=== PATIENT | female | born 1995 | race American Indian/Alaskan Native ===

== ENCOUNTER 2016-12-02 16:12 | Emergency (ER) | payer OTHER ==
[2016-12-02 16:27] VITALS: TEMP 98.1
[2016-12-02] MEDS ORDERED: Sodium Chloride 0.9% 1,000 ML IV STA (16:54)
[2016-12-02 17:46] LABS: ADD MANUAL DIFF? NO
[2016-12-02 17:55] LABS: BASO # 0.04 K/mm3 (0.0-2.0); BASO % 0.7 % (0.0-3.0); EOS # 0.1 (0.0-0.7); EOS % 0.8 % (1.5-5.0); GRAN # 2.85 (1.4-6.5); GRAN % 48.1 % (50.0-68.0); HEMATOCRIT 39.8 % (36.0-48.0); LYMPH # 2.1 (1.2-3.4); LYMPH % 34.9 % (22.0-35.0); MEAN CELL VOLUME 77.1 fL (80.0-105.0); MEAN CORPUSCULAR HEMOGLOBIN 25.6 pg (25.0-35.0); MEAN CORPUSCULAR HGB CONC 33.2 g/dl (31.0-37.0); MEAN PLATELET VOLUME 9.4 fl (7.0-11.0); MONO # 0.9 (0.1-0.6); MONO % 15.5 % (1.0-6.0); PLATELET COUNT 387 10^3/uL (120.0-450.0); RED CELL DISTRIBUTION WIDTH 15.2 % (11.5-14.5); WHITE BLOOD COUNT 5.9 10^3/ul (4.5-11.0)
[2016-12-02 17:56] LABS: URINE BILIRUBIN NEGATIVE (NEGATIVE); URINE BLOOD TRACE-INTACT (NEGATIVE); URINE GLUCOSE (UA) NEGATIVE (NEGATIVE); URINE KETONE NEGATIVE (NEGATIVE); URINE LEUKOCYTE ESTERASE NEGATIVE Leu/uL (NEGATIVE); URINE PROTEIN TRACE mg/dL (<30 mg/dL); URINE UROBILINOGEN 0.2 E.U./dL (<1 E.U./dL)
[2016-12-02 18:09] LABS: URINE APPEARANCE CLOUDY (CLEAR); URINE COLOR YELLOW (YELLOW)
[2016-12-02 18:09] LABS: ALB/GLOB RATIO 1.3 (1.1-1.8); ALKALINE PHOSPHATASE 78 U/L (38-133); ALT/SGPT 36 U/L (7-56); AST/SGOT 26 U/L (15-39); BILIRUBIN,TOTAL 0.5 mg/dL (0.2-1.3); BLOOD UREA NITROGEN 14 mg/dL (7-21); CALCIUM 9.7 mg/dL (8.4-10.5); CARBON DIOXIDE 25 mmol/L (21-33); CHLORIDE 104 mmol/L (98-107); GFR AFRICAN-AMERICAN > 60; GLUCOSE,RANDOM 90 mg/dL (70-110); POTASSIUM 3.7 mmol/L (3.6-5.0); SODIUM 141 mmol/L (132-148); TOTAL PROTEIN 8.1 g/dL (5.8-8.3)
[2016-12-02 18:17] LABS: URINE AMORPHOUS SEDIMENT MANY; URINE BACTERIA MOD (NEG)
--- NOTE | 2016-12-02 18:43 | ED PDOC ---
Arrival/HPI - General Chief Complaint: GI Problem Time Seen by Provider: 12/02/16 16:18 Historian: Patient - History of Present Illness Narrative History of Present Illness (Text): 12/02/16 18:46 Kristen Lam, a 21 year old female, presents to the emergency department complaining of suprapubic pain and 1 episode of small amount of hematochezia since . Patient also notes positive dysuria. Patient denies recent travels, hematuria, vaginal bleeding, vaginal discharge, nausea, vomiting, no changes in appetite or any other complaints at this time. Time/Duration: 24 hours Symptom Onset: Sudden Symptom Course: Unchanged Activities at Onset: Rest Modifying Factors (Text): none Context: Home Associated Symptoms (Text): dysuria Past Medical History - Provider Review Nursing Documentation Reviewed: Yes - Infectious Disease Hx of Infectious Diseases: None - Psychiatric Hx Substance Use: No - Anesthesia Hx Anesthesia: Yes Hx Anesthesia Reactions: No Hx Malignant Hyperthermia: No Family/Social History - Physician Review Nursing Documentation Reviewed: Yes Family/Social History: No Known Family HX Smoking Status: Light Smoker < 10 Cigarettes Daily Hx Alcohol Use: Yes Frequency of alcohol use: Socially Hx Substance Use: No Allergies/Home Meds Allergies/Adverse Reactions: Allergies No Known Allergies Allergy (Verified 12/02/16 16:27) Review of Systems - Physician Review All systems were reviewed & negative as marked: Yes - Review of Systems Gastrointestinal: Hematochezia. absent: Nausea, Vomiting, Appetite Changes Genitourinary Female: Dysuria. absent: Hematuria, Vaginal Bleeding, Vaginal Discharge Physical Exam Vital Signs Reviewed: Yes Vital Signs Temp Pulse Resp BP Pulse Ox 12/02/16 16:18 98.1 F 82 19 125/82 98 Temperature: Afebrile Blood Pressure: Normal Pulse: Regular Respiratory Rate: Normal Appearance: Positive for: Well-Appearing, Non-Toxic, Comfortable Pain Distress: None Mental Status: Positive for: Alert and Oriented X 3 - Systems Exam Head: Present: Atraumatic, Normocephalic Pupils: Present: PERRL Extroacular Muscles: Present: EOMI Conjunctiva: Present: Normal Mouth: Present: Moist Mucous Membranes Neck: Present: Normal Range of Motion Respiratory/Chest: Present: Clear to Auscultation, Good Air Exchange. No: Respiratory Distress, Accessory Muscle Use Cardiovascular: Present: Regular Rate and Rhythm, Normal S1, S2. No: Murmurs Abdomen: Present: Tenderness (mild suprapubic), Normal Bowel Sounds Upper Extremity: Present: Normal Inspection. No: Cyanosis, Edema Lower Extremity: Present: Normal Inspection. No: Edema Neurological: Present: GCS=15, CN II-XII Intact, Speech Normal Skin: Present: Warm, Dry, Normal Color. No: Rashes Psychiatric: Present: Alert, Oriented x 3, Normal Insight, Normal Concentration Medical Decision Making ED Course and Treatment: 12/02/16 18:44 Impression: A 21 year old female with suprapubic pain and 1 episode of small amount hematochezia. Differential Diagnosis include but are not limited to: Plan: -- Urinalysis -- labs -- IV fluids -- Reassess and disposition Progress Notes: - Lab Interpretations Lab Results: 12/02/16 17:37 12/02/16 17:37 Lab Results 12/02/16 17:38: Urine Color Yellow, Urine Appearance Cloudy, Urine pH 6.0, Ur Specific [place] >= 1.030, Urine Protein Trace H, Urine Glucose (UA) Negative, Urine Ketones Negative, Urine Blood Trace-intact H, Urine Nitrate Negative, Urine Bilirubin Negative, Urine Urobilinogen 0.2, Ur Leukocyte Esterase Negative , Urine RBC 1 - 3, Urine WBC 2 - 5, Ur Epithelial Cells 6 - 8, Amorphous Sediment Many, Urine Bacteria Mod, Fine Granular Casts 0 - 2 12/02/16 17:37: Urine HCG, Qual Negative 12/02/16 17:37: Sodium 141, Potassium 3.7, Chloride 104, Carbon Dioxide 25, Anion Gap 16, BUN 14, Creatinine 0.7, Est GFR ( Amer) > 60, Est GFR (Non- Af Amer) > 60, Random Glucose 90, Calcium 9.7, Total Bilirubin 0.5, AST 26, ALT 36, Alkaline Phosphatase 78, Total Protein 8.1, Albumin 4.5, Globulin 3.6, Albumin/Globulin Ratio 1.3 12/02/16 17:37: WBC 5.9, RBC 5.16, Hgb 13.2, Hct 39.8, MCV 77.1 L, MCH 25.6, MCHC 33.2, RDW 15.2 H, Plt Count 387, MPV 9.4, Gran % 48.1 L, Lymph % (Auto) 34.9, [place] % (Auto) 15.5 H, Eos % (Auto) 0.8 L, Baso % (Auto) 0.7, Gran # 2.85, Lymph # 2.1, [place] # 0.9 H, Eos # 0.1, Baso # 0.04 I have reviewed the lab results: Yes - Medication Orders Current Medication Orders: Discontinued Medications Sodium Chloride (Sodium Chloride 0.9%) 1,000 mls @ 1,000 mls/hr IV .Q1H STA Stop: 12/02/16 17:53 Last Admin: 12/02/16 17:43 Dose: 1,000 mls/hr - Scribe Statement [place] All medical record entries made by the Scribe were at my direction and personally dictated by me. I have reviewed the chart and agree that the record accurately reflects my personal performance of the history, physical exam, medical decision making, and the department course for this patient. I have also personally directed, reviewed, and agree with the discharge instructions and disposition. Disposition/Present on Arrival - Present on Arrival Any Indicators Present on Arrival: No History of DVT/PE: No History of Uncontrolled Diabetes: No Urinary Catheter: No History of Decub. Ulcer: No History Surgical Site Infection Following: None - Disposition Have Diagnosis and Disposition been Completed?: Yes Diagnosis: Cystitis Disposition: HOME/ ROUTINE Disposition Time: 18:30 Patient Plan: Discharge Patient Problems: Current Active Problems Problem Status Onset Cystitis Acute Condition: GOOD Discharge Instructions (ExitCare): Urinary Tract Infection in Women (ED) Additional Instructions: Thank you for letting us take care of you today. Your provider was Dr. Cr. You were treated for bladder infection. The emergency medical care you received today was directed at your acute symptoms. If you were prescribed any medication, please fill it and take as directed. It may take several days for your symptoms to resolve. Return to the Emergency Department if your symptoms worsen, do not improve, or if you have any other problems. Please contact your doctor or call one of the physicians/clinics you have been referred to that are listed on the Patient Visit Information form that is included in your discharge packet. Bring any paperwork you were given at discharge with you along with any medications you are taking to your follow up visit. Our treatment cannot replace ongoing medical care by a primary care provider (PCP) outside of the emergency department. Thank you for allowing the [facility] team to be part of your care today. You had a urine culture: It will take several days for the results, if any change in treatment is needed we will contact you. Follow up with Dr. Clay in 3-4 days for re-evaluation. Prescriptions: Ibuprofen [Motrin] 600 mg PO Q6 PRN #20 tab PRN Reason: Pain, Moderate (4-7) Nitrofurantoin Macrocrystals [Macrobid] 100 mg PO BID #14 cap Referrals: Nito Clay MD [Primary Care Provider] - Follow up with primary
[2016-12-02 19:17] VITALS: BP 129/84; PULSE 60; RESP 16; O2SAT 100
== END 2016-12-02 19:22 | disposition home or self-care (01) ==
LOC: ED 16:12
DX: N30.90 Cystitis, unspecified without hematuria (principal)
CPT/HCPCS: 80053; 81001; 84703; 85025; 87086; 99284; J7040

== ENCOUNTER 2016-12-03 14:10 | Emergency (ER) | payer OTHER ==
[2016-12-03 14:39] VITALS: TEMP 98.7; O2SAT 98; BMI 30.1
--- NOTE | 2016-12-03 15:14 | ED PDOC ---
Arrival/HPI - General Historian: Patient - General Chief Complaint: Female Genitourinary Time Seen by Provider: 12/03/16 14:12 - History of Present Illness Narrative History of Present Illness (Text): 12/03/16 15:13 21-year-old female presents today with concerns for vaginal discharge and vaginal bumps. Patient states she was seen in the emergency room yesterday and was treated for urinary tract infection. Patient states she woke up this morning and had a lot of abnormal of vaginal discharge. Patient with a history of recent unprotected sex with new partner. She denies any rectal bleeding. Denies any vaginal bleeding. Denies abdominal pain. No nausea or vomiting. Patient states she was concerned and came to the emergency room for reevaluation. (Mariana Heard) Past Medical History - Provider Review Nursing Documentation Reviewed: Yes - Travel History Have you recently traveled outside [place] w/in the past 3 mons?: No - Infectious Disease Hx of Infectious Diseases: None - Psychiatric Hx Substance Use: No - Anesthesia Hx Anesthesia: Yes Hx Anesthesia Reactions: No Hx Malignant Hyperthermia: No Family/Social History - Physician Review Nursing Documentation Reviewed: Yes Family/Social History: Unknown Family HX Smoking Status: Light Smoker < 10 Cigarettes Daily Hx Alcohol Use: No Hx Substance Use: No Allergies/Home Meds Allergies/Adverse Reactions: Allergies No Known Allergies Allergy (Verified 12/03/16 14:38) Review of Systems - Review of Systems Constitutional: absent: Fatigue, Fevers Respiratory: absent: SOB, Cough Cardiovascular: absent: Chest Pain, Palpitations Gastrointestinal: absent: Abdominal Pain, Diarrhea, Nausea, Vomiting, Hematochezia Genitourinary Female: Dysuria, Vaginal Discharge. absent: Frequency, Hematuria , Vaginal Bleeding Musculoskeletal: absent: Arthralgias, Back Pain, Neck Pain Skin: absent: Rash, Pruritis Neurological: absent: Headache, Dizziness Psychiatric: absent: Depression Physical Exam Vital Signs Reviewed: Yes Temperature: Afebrile Blood Pressure: Normal Pulse: Regular Respiratory Rate: Normal Appearance: Positive for: Well-Appearing, Non-Toxic, Comfortable Pain Distress: None Mental Status: Positive for: Alert and Oriented X 3 - Systems Exam Head: Present: Atraumatic, Normocephalic Pupils: Present: PERRL Extroacular Muscles: Present: EOMI Conjunctiva: Present: Normal Mouth: Present: Moist Mucous Membranes Neck: Present: Normal Range of Motion Respiratory/Chest: Present: Clear to Auscultation, Good Air Exchange. No: Respiratory Distress, Accessory Muscle Use Cardiovascular: Present: Regular Rate and Rhythm, Normal S1, S2. No: Murmurs Abdomen: Present: Normal Bowel Sounds. No: Tenderness, Distention, Peritoneal Signs, Rebound, Guarding Genitourinary/Pelvic Exam: Present: Vaginal Discharge (+ yellow vaginal discharge noted. ), Cervical os Closed, Other (chaparoned by oksana jones EMT.). No : Normal External Genitalia (multiple vesicles and open lesions noted to labial bilaterally. ) Back: Present: Normal Inspection Upper Extremity: Present: Normal Inspection. No: Cyanosis, Edema Lower Extremity: Present: Normal Inspection. No: Edema Neurological: Present: GCS=15 Skin: Present: Warm, Dry Psychiatric: Present: Alert, Oriented x 3, Normal Concentration Medical Decision Making ED Course and Treatment: 12/03/16 15:38 21yr old female with vaginal discharge and vaginal lesions s/p unprotected sex. pt with vaginal lesions; will treat for genital herpes with acyclovir pt with vaginal discharge; will treat prophylactically for gonorrhea/chlamydia Rocephin 250 IV Zithromax 1 g by mouth Acyclovir 400 mg by mouth I discussed all findings and depth with the patient. I stressed the importance of notifying sexual partner of genital herpes diagnosis. Advised follow-up with her transformer assembler within the next 2 days. Advised to return if symptoms worsen or persist or if new concerning symptoms develop. I discussed in length the diagnosis of genital herpes with the patient. Patient verbalizes understanding of discharge instructions and need for immediate followup. Impression: Genital herpes, vaginal discharge Motrin every 6 hours as needed for pain Acyclovir 3 times daily 7 days Follow-up with her transformer assembler within the next 2 days Continue antibiotics as prescribed for urinary tract infection Follow-up with primary care physician within the next 2 days Return immediately if symptoms worsen persist or if new concerning symptoms develop (Mariana Heard) I was available for consultation during PA evaluation. The chart reviewed by me , and I agree with disposition. The documented history was done by the physician commodities requirements analyst. The documented physical exam was done by the physician commodities requirements analyst. The documented procedures were done by the physician commodities requirements analyst. (Nba Laureano) - Medication Orders Current Medication Orders: Discontinued Medications Acyclovir (Zovirax) 400 mg PO STAT STA PRN Reason: Protocol Stop: 12/03/16 15:35 Last Admin: 12/03/16 16:26 Dose: 400 mg Azithromycin (Zithromax) 1,000 mg PO STAT STA PRN Reason: Protocol Stop: 12/03/16 15:33 Last Admin: 12/03/16 16:26 Dose: 1,000 mg Ceftriaxone Sodium (Rocephin) 250 mg IM STAT STA PRN Reason: Protocol Stop: 12/03/16 15:33 Last Admin: 12/03/16 16:26 Dose: 250 mg Disposition/Present on Arrival - Present on Arrival Any Indicators Present on Arrival: No History of DVT/PE: No History of Uncontrolled Diabetes: No Urinary Catheter: No History of Decub. Ulcer: No History Surgical Site Infection Following: None - Disposition Have Diagnosis and Disposition been Completed?: Yes Disposition Time: 15:36 Patient Plan: Discharge - Disposition Diagnosis: Genital herpes, Vaginal discharge Disposition: HOME/ ROUTINE Patient Problems: Current Active Problems Problem Status Onset Genital herpes Acute Vaginal discharge Acute Condition: GOOD Discharge Instructions (ExitCare): Genital Herpes Simplex (ED), Vaginal Discharge (ED) Additional Instructions: Motrin every 6 hours as needed for pain Acyclovir 3 times daily 7 days Follow-up with her transformer assembler within the next 2 days Continue antibiotics as prescribed for urinary tract infection Follow-up with primary care physician within the next 2 days Return immediately if symptoms worsen persist or if new concerning symptoms develop Prescriptions: Acyclovir [Zovirax] 400 mg PO TID #21 tab Referrals: Nito Clay MD [Primary Care Provider] - Follow up with primary Antonieta Christina MD [Staff Provider] - Follow up with primary Forms: WORK NOTE, SCHOOL NOTE
[2016-12-03] MEDS ORDERED: cefTRIAXone (Rocephin) 250 mg Inj IM STA (15:32)
[2016-12-03 16:29] VITALS: BP 121/78; PULSE 75; RESP 18
== END 2016-12-03 16:47 | disposition home or self-care (01) ==
LOC: ED 14:10
DX: B00.9 Herpesviral infection, unspecified (principal); N89.8 Other specified noninflammatory disorders of vagina
CPT/HCPCS: 87491; 87591; 96372; 99283; J0696; J8499